=== PATIENT | female | born 1990 | race Caucasian/White ===

== ENCOUNTER 2018-01-03 18:21 | Emergency (ER) | payer SELFPAY ==
[~2018-01-03] VITALS: Ht 175.3 cm; Wt 90.7 kg
--- NOTE | 2018-01-03 19:00 | NUR ---
Report received from Jose Alfredo SANCHEZ. Patient AAO, NAD noted. Seen by Dr. Wade.
[2018-01-03] MEDS ORDERED: AMOXICILLIN-CLAVUL 875-125MG TABLET PO ONE (19:15)
[2018-01-03] MEDS ORDERED: AMOXICILLIN-CLAVUL 875-125MG TABLET ONE (19:15)
--- NOTE | 2018-01-03 19:37 | NUR ---
Patient discharged to home in stable conditon. Written and verbal after care instructions given. Patient verbalizes understanding of instructions.
[2018-01-03 19:38] VITALS: BP 110/70
== END 2018-01-03 19:35 | disposition home or self-care (01) ==
LOC: ER 18:22
DX: O26.892 Other specified pregnancy related conditions, second trimester (principal); S61.252A Open bite of right middle finger without damage to nail, initial encounter; Z3A.24 24 weeks gestation of pregnancy; W54.0XXA Bitten by dog, initial encounter; Y93.89 Activity, other specified; Y92.89 Other specified places as the place of occurrence of the external cause; Y99.8 Other external cause status
CPT/HCPCS: A4663